=== PATIENT | female | born 2005 | race Caucasian/White ===

== ENCOUNTER 2024-10-11 14:37 | Observation (INO) ==
--- NOTE | 2024-10-11 14:53 | Emergency Department Note ---
Impression & Plan Pyelonephritis, UTI (urinary tract infection), Back pain ED Provider Note NAME: LAM LEIGH AGE: 19 SEX: F : 2005 ARRIVES VIA: Walk-In INFORMANT: Patient ED PROVIDER(S): Tonny Silva DO CHIEF COMPLAINT: right flank pain HPI: Patient is a 19-year-old female who presents ER for right flank pain. Pain started last Tuesday. She was having dysuria urgency or frequency. She gave a urine at [facility] and had a culture and was referred in. Currently on Macrobid and Pyridium. Denies any chest pain, shortness of breath, nausea, vomiting or diarrhea. No dysuria, urgency or frequency. No other exacerbating or remitting factors. ADDITIONAL HISTORY OBTAINED: Per HPI Chronic Medical/Social Conditions Affecting Care: Per HPI PAST MEDICAL HISTORY:See Below PAST SURGICAL HISTORY:See Below FAMILY HISTORY:See Below SOCIAL HISTORY:See Below HOME MEDICATIONS:See Below ALLERGIES:See Below VITALS:See Below PHYSICAL EXAMINATION: GENERAL: Sitting up in bed, alert, well appearing, well nourished, no distress, non-toxic EYE EXAM: normal conjunctiva. OROPHARYNX: no exudate, no erythema, lips, buccal mucosa, and tongue normal and mucous membranes are moist NECK: supple, no nuchal rigidity, no adenopathy, non-tender LUNGS: Clear to auscultation. Normal chest wall mechanics HEART: no murmurs, S1 normal and S2 normal ABDOMEN: abdomen soft, non-tender, normo-active bowel sounds, no masses, no rebound or guarding. BACK: Back is symmetrical on inspection and there is no deformity, no midline tenderness, no CVA tenderness. SKIN: no rashes and no bruising UPPER EXTREMITIES: upper extremities are grossly normal. LOWER EXTREMITIES: No pitting edema. NEURO EXAM: Normal sensorium, cranial nerves II-XII grossly intact, normal speech, no gross weakness of arms, no gross weakness of legs. MEDICAL DECISION MAKING: Patient is a 19-year-old female who presents ER for the below stated complaint. IV was established and blood work was obtained. Labs showed no significant leukocytosis or anemia. BMP along LFTs bilirubin lipase is unremarkable. hCG is negative. UA consistent with UTI. External records were reviewed from [facility] which shows extensive resistance. Based on this and the CT showing pyelonephritis patient was given IV antibiotics updated bedside and discussed the case with the hospitalist for further evaluation management treatment. CT of the head also showed sinusitis. Patient was given ertapenem which would cover this as well. Consults/Care Managements Discussions: Per [facility] Triage Nursing notes reviewed. Limited review of prior medical records performed Vital Signs: reviewed and remarkable for no significant abnormalities Differential diagnosis: Differential diagnoses includes but is not limited to gastritis, peptic ulcer disease, GERD, gallbladder disease, pancreatitis, small bowel obstruction, appendicitis, diverticulitis, hernia, urinary tract infection, torsion, /ectopic (if female), perforation, trauma, infectious. ER treatment provided: See below Diagnostics interpreted by me include EKG and cardiac monitoring as listed below: -Cardiac Monitoring: An order was placed for continuous cardiac monitoring. The monitor shows a rate of 82 with sinus rhythm. -ECG: none -Laboratory studies:Interpreted by me as stated above in MDM and shown below. Imaging studies: Xrays: As interpreted by me:none CTs show: CT abdomen pelvis per my preliminary interpretation showed no obvious bowel obstruction CT abdomen pelvis per radiologist described above Procedures:none Critical Care: None Past Med/Surg History Problem List (Updated 10/11/24 @ 19:39 by Tonny Silva DO) Back pain (Acute) Pyelonephritis (Acute) Headache UTI (urinary tract infection) (Acute) Nausea (Acute) Nasal congestion (Acute) Cough (Acute) Fever (Acute) Influenza A (Acute) Medical History No pertinent past medical history Social History Smoking Status: Never smoker Preferred Language: Korean Feels Safe at Home: Yes Allergies Allergies Allergy/AdvReac Type Severity Reaction Status Date / Time minocycline Allergy Unknown Verified 10/11/24 16:26 Home Meds Home Medications Medication Instructions Recorded Confirmed nitrofurantoin 100 mg PO BID 10/11/24 10/11/24 monohydrate/macrocrystals 100 mg capsule norethindrone 1 mg-ethinyl 1 tab PO HS 10/11/24 10/11/24 estradiol 20 mcg (21)-iron 75 mg (7) tablet (Aurovela Fe 1-20 (28)) phenazopyridine 200 mg tablet 200 mg PO UD 10/11/24 10/11/24 sertraline 100 mg tablet 100 mg PO HS 10/11/24 10/11/24 spironolactone 50 mg tablet 50 mg PO BID 10/11/24 10/11/24 Previous Rx's Medication Instructions Recorded ondansetron 4 mg disintegrating 4 mg PO Q6H PRN nausea and 09/27/24 tablet vomiting #7 tabs Results & Data (ED) Vital Signs Vital Signs - 24 hr 10/11/24 14:38 10/11/24 16:38 10/11/24 16:38 Temperature 36.4 C L Temperature Source Temporal Artery Scan Pulse Rate 85 79 Pulse Rate [Left Finger] 79 Pulse Rhythm Regular Respiratory Rate 18 19 19 Respiratory Effort / Characteristics Non-Labored Spontaneous Respiratory Depth Normal Respiratory Pattern Regular Blood Pressure 121/81 Blood Pressure [Left Arm] 126/80 Blood Pressure Mean 94 Blood Pressure Mean [Left Arm] 95 Blood Pressure Position [Left Arm] Sitting Pulse Oximetry 96 96 96 Oxygen Delivery Method Room Air Room Air Sepsis Recent Fever Within 48 Hours No Sepsis New/Unexplained Change in Mental Status N/A Sepsis Action Taken by Nursing No Action Required Laboratory Data 10/11/24 15:00 10/11/24 15:00 Lab Results 10/11/24 10/11/24 Range/Units 15:00 15:09 WBC 7.20 (4.8-10.8) K/ul RBC 4.79 (4.20-5.40) M/uL Hgb 13.3 (12.0-16.0) g/dl Hct 39.7 (37.0-47.0) % MCV 82.9 (80.0-100.0) fL MCH 27.8 (25.0-34.0) pg MCHC 33.5 (32.0-36.0) g/dL RDW Std Deviation 39.8 (36.4-46.3) fL RDW Coeff of Mee 13.2 (11.5-14.5) % Plt Count 308 (130-400) K/uL MPV 9.0 L (9.4-12.4) fL Immature Gran % (Auto) 0.4 % Neut % (Auto) 67.1 % Lymph % (Auto) 23.3 % Burnet % (Auto) 8.8 % Eos % (Auto) 0.1 % Baso % (Auto) 0.3 % Neut # (Auto) 4.83 (1.40-6.50) K/uL Lymph # (Auto) 1.68 (1.20-3.40) K/uL Burnet # (Auto) 0.63 H (0.11-0.59) K/uL Eos # (Auto) 0.01 (0.00-0.50) K/uL Baso # (Auto) 0.02 (0.00-0.20) K/uL Immature Gran # (Auto) 0.03 (0.01-0.20) K/uL Sodium 137 (136-145) mmol/L Potassium 4.4 (3.5-5.1) mmol/L Chloride 103 (98-107) mmol/L Carbon Dioxide 26 (21-32) mmol/L Anion Gap 8 (3-11) BUN 15 (6-23) mg/dl Creatinine 0.90 (0.6-1.2) mg/dl Est Cr Clr Drug Dosing 79.5 ml/min eGFR 93.28 BUN/Creatinine Ratio 16.7 (10-20) Glucose 95 (70-99(Fasting)) mg/dl Calcium 9.1 (8.6-10.3) mg/dl Total Bilirubin 0.5 (0.2-1.0) mg/dl AST 19 (13-39) U/L ALT 14 (7-52) U/L Alkaline Phosphatase 73 (34-104) U/L Total Protein 7.5 (6.0-8.3) gm/dl Albumin 4.4 (3.4-5.0) gm/dl Globulin 3.1 (2.5-4.0) gm/dl Albumin/Globulin Ratio 1.4 (0.9-2) Lipase 23 (11-82) U/L HCG, Qual Negative (Negative) Urine Color Dark Yellow Urine Appearance Clear (Clear) Urine pH 7.0 (4.5-7.5) Ur Specific [place]land 1.008 (1.000-1.030) Urine Protein Negative (Negative) Urine Glucose (UA) Negative (Negative) Urine Ketones Negative (Negative) Urine Blood Negative (Negative) Urine Nitrite Positive A (Negative) Urine Bilirubin Negative (Negative) Urine Urobilinogen Negative (Negative) Ur Leukocyte Esterase 1+ H (Negative) Urine WBC (Auto) 0-5 (0-5) /hpf Urine RBC (Auto) 0-2 (0-2) /hpf U Hyaline Cast (Auto) 0-2 (0-2) /lpf U Epithel Cells (Auto) 6-10 H (0-2) /hpf Urine Bacteria (Auto) 2+ H (None Seen) Administered Medications Discontinued Medications Acetaminophen (Acetaminophen 500 Mg Tab) 1,000 mg PO NOW STA Stop: 10/11/24 18:47 Last Admin: 10/11/24 19:04 Dose: 1,000 mg Documented By: DYLON Sodium Chloride (Nss) 1,000 mls @ 999 mls/hr IV .Q1H1M ONE Stop: 10/11/24 15:50 Last Infusion: 10/11/24 17:49 Dose: Infused Documented By: Admin: 10/11/24 15:04 Dose: 999 mls/hr Documented By: CHEYANNE Ertapenem (Invanz 1000mg) 1,000 mg in 10 mls @ 2 mls/min IV NOW STA Stop: 10/11/24 16:15 Last Admin: 10/11/24 16:59 Dose: 2 mls/min Documented By: CHEYANNE Ioversol (Optiray 320 100ml) 93 ml IV ONCE ONE Stop: 10/11/24 15:53 Last Admin: 10/11/24 15:52 Dose: 93 ml Documented By: WILD Ketorolac Tromethamine (Ketorolac Tromethamine 15 Mg/Ml Vial) 10 mg IV NOW ONE Stop: 10/11/24 14:51 Last Admin: 10/11/24 15:02 Dose: 10 mg Documented By: CHEYANNE Ondansetron HCl (Ondansetron Inj 2 Mg/Ml 2 Ml Vial) 4 mg IV NOW STA Stop: 10/11/24 17:05 Last Admin: 10/11/24 17:06 Dose: 4 mg Documented By: CHEYANNE Ondansetron HCl (Ondansetron Inj 2 Mg/Ml 2 Ml Vial) Confirm Administered Dose 4 mg .ROUTE .STK-MED ONE Stop: 10/11/24 17:06 Last Admin: 10/11/24 17:09 Dose: Not Given Documented By: CHEYANNE Imaging Data Radiologist's Impression: Abdomen/Pelvis CT 10/11/24 14:[address] WITH IV CONTRAST CT DOSE: 1092.35 mGy.cm HISTORY: Acute right-sided flank pain r flank pain TECHNIQUE: Multiaxial CT images of the abdomen and pelvis were performed following the IV administration of 93 cc of Optiray, A dose lowering technique was utilized adhering to the principles of ALARA. COMPARISON STUDY: None. FINDINGS: Subtle patchy subsegmental groundglass densities in the basal right lower lobe.. The liver, spleen, gallbladder, pancreas, and adrenal glands are within normal limits. Mild cortical scarring of the superior pole right kidney. Mild right-sided pelvocaliectasis with urothelial thickening. No obstructing calculus. Nonspecific mild urinary bladder wall thickening. Unremarkable uterus. No bowel wall thickening or obstruction. Normal appendix. Unremarkable osseous structures. IMPRESSION: 1. No bowel obstruction or bowel wall thickening. Normal appendix. 2. Nonspecific urinary bladder wall thickening. Correlate with urinalysis. 3. Mild right-sided pelvocaliectasis with urothelial thickening may represent an ascending infection. 4. Subtle groundglass opacities within the right lower lobe, likely infectious or inflammatory. ACT 112: Negative or not required by law. The above report was generated using voice recognition software. It may contain grammatical, syntax or spelling errors. Electronically signed by: Zeke Garcia M.D. 10/11/2024 4:[address] 10/11/24 14:50 CT head/brain wo con CLINICAL HISTORY: 19 years-old Female with bbo. Acute headache TECHNIQUE: Multiple axial CT images of the head were obtained without contrast. A dose lowering technique was utilized adhering to the principles of ALARA. COMPARISON: None. FINDINGS: No acute intracranial hemorrhage, midline shift, intracranial mass, hydrocephalus, territorial ischemia or abnormal extra-axial collection. The calvarium is intact. Moderate to severe mucosal thickening of the left maxillary sinus with aerosolized secretions and air-fluid level. Moderate mucosal thickening of the left ethmoid air cells. Mastoid air cells are clear. IMPRESSION: 1. No acute intracranial abnormality. 2. Moderate left-sided maxillary and ethmoid sinus disease with suggestion of acute component. ACT 112: Negative or not required by law. The above report was generated using voice recognition software. It may contain grammatical, syntax or spelling errors. Electronically signed by: Zeke Garcia M.D. 10/11/2024 4:00 PM Discharge Plan Visit Data Chief Complaint: Flank Pain Stated Complaint: UTI, RT FLANK PAIN, KIDNEY INFECTION ED Provider: Tonny Silva Discharge Problem: Pyelonephritis, UTI (urinary tract infection), Back pain Discharge Instructions Interventions: ED Discharge Assessment Last Done: 10/11/24 19:27 Discharge Problem: UTI (urinary tract infection) Qualifiers: Urinary tract infection type: acute pyelonephritis Qualified Code(s): N10 - Acute pyelonephritis Back pain Qualifiers: Back pain location: low back pain Chronicity: acute Back pain laterality: u nspecified Sciatica presence: unspecified whether sciatica present Qualified Code(s): M54.50 - Low back pain, unspecified
[2024-10-11] MEDS: KETOROLAC TROMETHAMINE 15 MG/ML VIAL IV ONE (15:02)
[2024-10-11] MEDS: SODIUM CHLORIDE 0.9% 1,000 ML IV ONE (15:04)
[2024-10-11 15:30] LABS: Basophils # (auto) 0.02 K/uL (0.00-0.20); Basophils % (auto) 0.3 %; Eosinophils # (auto) 0.01 K/uL (0.00-0.50); Eosinophils % (auto) 0.1 %; Hematocrit (blood only) 39.7 % (37.0-47.0); Hemoglobin 13.3 g/dl (12.0-16.0); Immature Granulocytes # (auto) 0.03 K/uL (0.01-0.20); Immature Granulocytes % (auto) 0.4 %; Lymphocytes # (auto) 1.68 K/uL (1.20-3.40); Lymphocytes % (auto) 23.3 %; Mean Corpuscular Hemoglobin 27.8 pg (25.0-34.0); Mean Corpuscular Hgb Conc 33.5 g/dL (32.0-36.0); Mean Corpuscular Volume 82.9 fL (80.0-100.0); Monocytes # (auto) 0.63 K/uL (0.11-0.59); Monocytes % (auto) 8.8 %; Neutrophils # (auto) 4.83 K/uL (1.40-6.50); Neutrophils % (auto) 67.1 %; Platelet Count 308 K/uL (130-400); RDW Coefficient of Variation 13.2 % (11.5-14.5); RDW Standard Deviation 39.8 fL (36.4-46.3); Red Blood Count 4.79 M/uL (4.20-5.40)
[2024-10-11 15:36] LABS: Pregnancy Test, Serum Negative (Negative)
[2024-10-11 15:45] LABS: Albumin Globulin Ratio 1.4 (0.9-2); Albumin Level 4.4 gm/dl (3.4-5.0); BUN Creatinine Ratio 16.7 (10-20); Bilirubin,Total 0.5 mg/dl (0.2-1.0); Calcium 9.1 mg/dl (8.6-10.3); Creatinine Clr Calc Pharmacy 79.5 ml/min; Globulin 3.1 gm/dl (2.5-4.0); Potassium 4.4 mmol/L (3.5-5.1); Total Protein 7.5 gm/dl (6.0-8.3)
[2024-10-11 15:48] LABS: Appearance Urine Clear (Clear); Bacteria Urine Automated 2+ (None Seen); Bilirubin Urine Negative (Negative); Blood Urine Negative (Negative); Cast Urine Automated 0-2 /lpf (0-2); Color Urine Dark Yellow; Glucose Urine UA Negative (Negative); Ketones Urine Negative (Negative); Leukocyte Esterase Urine 1+ (Negative); Nitrite Urine Positive (Negative); Protein Urine Negative (Negative); RBC Urine Automated 0-2 /hpf (0-2); Specific Gravity Urine 1.008 (1.000-1.030); Urobilinogen Urine Negative (Negative); WBC Urine Automated 0-5 /hpf (0-5)
[2024-10-11] MEDS: OPTIRAY 320 100ml IV ONE (15:52)
--- NOTE | 2024-10-11 16:01 | CT Scan Report ---
CT head/brain wo con CLINICAL HISTORY: 19 years-old Female with bob. Acute headache TECHNIQUE: Multiple axial CT images of the head were obtained without contrast. A dose lowering tech nique was utilized adhering to the principles of ALARA. COMPARISON: None. FINDINGS: No acute intracranial hemorrhage, midline shift, intracranial mass, hydrocephalus, territorial ischem ia or abnormal extra-axial collection. The calvarium is intact. Moderate to severe mucosal thickening of the left maxillary sinus with aero solized secretions and air-fluid level. Moderate mucosal thickening of the left ethmoid air cells. Ma stoid air cells are clear. IMPRESSION: 1. No acute intracranial abnormality. 2. Moderate left-sided maxillary and ethmoid sinus disease with suggestion of acute component. ACT 112: Negative or not required by law. The above report was generated using voice recognition software. It may contain grammatical, syntax o r spelling errors. Electronically signed by: Zeke Garcia M.D. 10/11/2024 4:00 PM
--- NOTE | 2024-10-11 16:08 | CT Scan Report ---
ABDOMEN AND PELVIS CT WITH IV CONTRAST CT DOSE: 1092.35 mGy.cm HISTORY: Acute right-sided flank pain r flank pain TECHNIQUE: Multiaxial CT images of the abdomen and pelvis were performed following the IV administrat ion of 93 cc of Optiray, A dose lowering technique was utilized adhering to the principles of ALARA. COMPARISON STUDY: None. FINDINGS: Subtle patchy subsegmental groundglass densities in the basal right lower lobe.. The liver, spleen, gallbladder, pancreas, and adrenal glands are within normal limits. Mild cortical scarring o f the superior pole right kidney. Mild right-sided pelvocaliectasis with urothelial thickening. No ob structing calculus. Nonspecific mild urinary bladder wall thickening. Unremarkable uterus. No bowel wall thickening or obstruction. Normal appendix. Unremarkable osseous structures. IMPRESSION: 1. No bowel obstruction or bowel wall thickening. Normal appendix. 2. Nonspecific urinary bladder wall thickening. Correlate with urinalysis. 3. Mild right-sided pelvocaliectasis with urothelial thickening may represent an ascending infection. 4. Subtle groundglass opacities within the right lower lobe, likely infectious or inflammatory. ACT 112: Negative or not required by law. The above report was generated using voice recognition software. It may contain grammatical, syntax o r spelling errors. Electronically signed by: Zeke Garcia M.D. 10/11/2024 4:05 PM
--- NOTE | 2024-10-11 16:28 | History & Physical Report ---
Date of Service October 11, 2024 Assessment & Plan (1) UTI (urinary tract infection): (2) Headache: Plan Anabella is a 19F with PMHx of urosepsis, hx of UPJ obstruction s/p Pyeloplasty (10/2023 with [facility]) who presents to the ED with flank pain that has not resolved despite taking Pyridium and Macrobid. #Flank Pain/ UTI Hx of UPJ obstruction s/p Pyeloplasty 2023. CT with right sided pelvocaliectasis and urothelial thickening, concerns for ascending infection. UC from [facility] with resistance to PO Continue Ertapenem until UC results Received 1L NSS. Encourage PO fluids Pain control: Tylenol, Toradol, Pyridium prn AM CBC and BMP #Headache CT head: no acute intracranial abnormality. Moderate left-sided maxillary sinus disease Pt is recovering from flu/PNA - if bacterial would be covered by ertapenem above, but not complaining of sinus issues. Suspect dehydration component. acne - continue spironolactone, OCP (instructed to bring in from home) mental health - continue zoloft Dispo: obs to med/tele DVT proh: low risk, encourage ambulation CODE STATUS: Full History of Present Illness Chief Complaint: Flank pain Primary Care Provider: [facility] Anabella is a 19F with PMHx of urosepsis, hx of UPJ obstruction s/p Pyeloplasty ([facility]) who presents to the ED with flank pain that has not resolved despite taking Pyridium and Macrobid. UTI symptoms started about one week ago. Had UC with [facility] that showed resistance to everything listed, but Macrobid, and was instructed to come to the ED with continued flank pain. Has associated nausea, vomiting and chills. Has not measured for a fever. Was able to keep some food down with zofran this morning. Also reporting a headache, denies vision changes or that the room is spinning. Does report some dizziness. About two weeks ago had flu/pneumonia. ED course: NSS 1L toradol 10mg IV x11 ertapenem 1g Allergies Allergy/AdvReac Type Severity Reaction Status Date / Time minocycline Allergy Unknown Verified 10/11/24 16:26 Home Medications Medication Instructions Recorded Confirmed Type ondansetron 4 mg disintegrating 4 mg PO Q6H PRN nausea and 09/27/24 10/11/24 Rx tablet vomiting #7 tabs norethindrone 1 mg-ethinyl 1 tab PO HS 10/11/24 10/11/24 History estradiol 20 mcg (21)-iron 75 mg (7) tablet (Aurovela Fe 1-20 (28)) phenazopyridine 200 mg tablet 200 mg PO UD 10/11/24 10/11/24 History sertraline 100 mg tablet 100 mg PO HS 10/11/24 10/11/24 History spironolactone 50 mg tablet 100 mg PO BID 10/11/24 10/11/24 History ciprofloxacin HCl 500 mg tablet 500 mg PO BID 5 days #10 tabs 10/12/24 Rx Past Med/Surg History Problem List Back pain (Acute) Pyelonephritis (Acute) Headache UTI (urinary tract infection) (Acute) Medical History No pertinent past medical history Social History Smoking Status: Never smoker Hx Alcohol Use: Yes Hx Substance Use: No Preferred Language: Guinean Communication Ability: Effective Nut [employer] B[employer] 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 + R CVA tenderness Extremities: Moves all extremities, no edema Neuro: A&O x3, Results & Data Results & Data Vital Signs (Past 12 Hours) Vital Signs Temp Pulse Resp BP Pulse Ox 10/11/24 14:38 97.5 F L 85 18 121/81 96 Laboratory Results cbc chemsitry reviewed outside urine culture reviewed Diagnostic Findings CTA/P reviewed CT head reviewed Supervising Physician Co-Signing Physician Notes I personally saw and examined the patient. I independently reviewed the labs, imaging, problem list, medication list, past medical history and family history. I verified all clifford points and agree with Christina De Souza PA-C with the following exceptions and/or additions: 19 year old female presents to the ER with right flank pain. Hx pyeloplasty. O/E HS RRR, no murmurs, Chest CTAB, Abdo SNT, Right CVA tenderness A/P E. coli pyelonephritis - resistant ampicillin, cefazolin, ceftriaxone, cefuroxime, tetracycline, Bactrim. Indeterminate resistance to levofloxacin. Sensitive ciprofloxacin and nitrofurantoin. Given not checked against cefepime/zosyn will treat as ESBL pending repeat culture with ertapenem. PG Care Time/CCT Total # of Minutes Spent Total Time Spent with Patient: Total time spent is greater than 50% in coordination of care (as documented) at patient's floor/unit and/or counseling patient: Coding Level of Care Code 49279 INT INP/OBS CARE 2/55MIN Diagnoses UTI (urinary tract infection) N39.0 Headache R51.9
[2024-10-11] MEDS: ERTAPENEM 1000MG 1,000 MG/10 ML SYR IV STA (16:59)
[2024-10-11] MEDS: ONDANSETRON INJ 2 MG/ML 2 ML VIAL IV STA (17:06)
[2024-10-11] MEDS: ONDANSETRON INJ 2 MG/ML 2 ML VIAL ONE (17:09)
[2024-10-11] MEDS: ACETAMINOPHEN 500 MG TAB PO STA (19:04)
[2024-10-11] MEDS ORDERED: POLYETHYLENE (MIRALAX) 17 GM PACK PO PRN (19:26)
[2024-10-11] MEDS ORDERED: PHENAZOPYRIDINE HCL 200 MG TAB PO PRN (19:26)
[2024-10-11] MEDS ORDERED: ACETAMINOPHEN 500 MG TAB PO PRN (19:26)
[2024-10-11] MEDS ORDERED: ONDANSETRON INJ 2 MG/ML 2 ML VIAL IV PRN (19:26)
[2024-10-11] MEDS ORDERED: MELATONIN 3 MG TAB PO PRN (19:26)
[2024-10-11] MEDS: SERTRALINE HCL 100 MG TABLET PO SCH (20:50)
[2024-10-11] MEDS: SPIRONOLACTONE 100 MG TAB PO SCH (20:50)
[2024-10-11] MEDS ORDERED: SPIRONOLACTONE 25 MG TAB PO SCH (21:00)
[2024-10-11] MEDS: [UNRECOGNIZED DRUG - OTHER] SCH (21:34)
[2024-10-11 22:21] VITALS: PULSE 71; TEMP 98.1; O2SAT 97
[2024-10-12] MEDS: KETOROLAC TROMETHAMINE 15 MG/ML VIAL IV PRN (00:06)
[2024-10-12 07:04] VITALS: BP 112/67; RESP 18
--- NOTE | 2024-10-12 08:17 | Hospitalist Progress Note ---
Date of Service October 12, 2024 Assessment & Plan (1) UTI (urinary tract infection): (2) Headache: Plan Anabella is a 19F with PMHx of urosepsis, hx of UPJ obstruction s/p Pyeloplasty (10/2023 with [facility] [place]) who presents to the ED with flank pain that has not resolved despite taking Pyridium and Macrobid. #Flank Pain/ UTI Hx of UPJ obstruction s/p Pyeloplasty [address] [place] [address] with right sided pelvocaliectasis and urothelial thickening, concerns for ascending infection. UC from [email or web address] with resistance to PO Continue Ertapenem until UC results Received 1L NSS. Encourage PO fluids Pain control: Tylenol, Toradol, Pyridium prn AM CBC and BMP Urine cx -- e. coi resistant ampicillin, cefazolin, ceftriaxone, cefuroxime, tetracycline Bactrim. Sensitive ciprofloxacin, indeterminate levo Urology consult pending, per nursing note patient contacted her urologist in [place] and req transfer to [place]. Can plan to f/u with urologist after eval Spironolactone placed on hold, on for acne but reports dehydration on admission and is diuretic, would not want to make worse #Headache CT head: no acute intracranial abnormality. Moderate left-sided maxillary sinus disease Pt is recovering from flu/PNA - if bacterial would be covered by ertapenem above, but not complaining of sinus issues. Suspect dehydration component. acne - continue spironolactone, OCP (instructed to bring in from home) mental health - continue zoloft Dispo: obs to med/tele DVT proh: low risk, encourage ambulation CODE STATUS: Full Admission and Anticipated Discharge Date Admission Date: October 11, 2024 Subjective Evaluated this morning, Results & Data Results & Data Vital Signs (Past 12 Hours) Vital Signs Temp Pulse Resp BP Pulse Ox O2 Del Method 10/12/24 07:04 36.7 C 71 18 112/67 97 Room Air PG Care Time/CCT Total # of Minutes Spent Total Time Spent with Patient: Total time spent is greater than 50% in coordination of care (as documented) at patient's floor/unit and/or counseling patient: Coding Diagnoses UTI (urinary tract infection) N10 Urinary tract infection type: acute pyelonephritis Headache R51.9 (1) UTI (urinary tract infection) Urinary tract infection type: acute pyelonephritis Qualified Code(s): N10 - Acute pyelonephritis
[2024-10-12 08:42] LABS: Hematocrit (blood only) 35.1 % (37.0-47.0); Hemoglobin 11.7 g/dl (12.0-16.0); Mean Corpuscular Hemoglobin 28.2 pg (25.0-34.0); Mean Corpuscular Hgb Conc 33.3 g/dL (32.0-36.0); Mean Corpuscular Volume 84.6 fL (80.0-100.0); Mean Platelet Volume 9.3 fL (9.4-12.4); Platelet Count 223 K/uL (130-400); RDW Coefficient of Variation 13.2 % (11.5-14.5); RDW Standard Deviation 40.9 fL (36.4-46.3); Red Blood Count 4.15 M/uL (4.20-5.40); White Blood Count 5.16 K/ul (4.8-10.8)
[2024-10-12 09:33] LABS: BUN Creatinine Ratio 18.1 (10-20); Calcium 8.7 mg/dl (8.6-10.3); Creatinine Clr Calc Pharmacy 87.7 ml/min; Magnesium 2.1 mg/dl (1.7-2.4); Potassium 4.3 mmol/L (3.5-5.1)
--- NOTE | 2024-10-12 09:55 | Urology Consultation ---
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 Patient remains afebrile and hemodynamically stable Labs reviewedcreatinine 0.83, no leukocytosis Urinalysis on arrival suspicious for infection Urine culture pending Outpatient urine culture reviewedE. coli with multidrug resistance pattern, sensitive to Ciprofloxacin CT imaging consistent with ascending infection, no focal obstruction No surgical intervention warranted Recommend continue with antibiotics and supportive care for complicated UTI She is clinically stable and subjectively feeling much better Reasonable to do outpatient management with Ciprofloxacin for complicated UTI will sign off, please contact our service with any additional questions or concerns History of Present Illness Reason for Consultation: complicated UTI, history of pyeloplasty Requesting Physician: Dr. 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 She was recently started on Macrobid for UTI by [facility]. She developed flank pain despite antibiotics and she was referred to the ED due to urine culture with multidrug resistance. On arrival to ED, she was afebrile and hemodynamically stable. Lab work showed WBC 7.2, hemoglobin 13.3, creatinine 0.90. hCG negative. Urinalysis was positive for nitrates, 1+ LE and 2+ bacteria. Urine culture obtained and pending. Workup included CT abdomen pelvis with IV contrast which showed nonspecific urinary bladder wall thickening, mild right-sided pelvocaliectasis with u rothelial thickening, no obstructing calculi. ED course: Acetaminophen, IV fluids, ertapenem, ketorolac and ondansetron. She was admitted to the hospital medicine service for complicated UTI. Urology is consulted for complicated UTI, history of pyeloplasty. Chart review: Urine culture on admission is pending Outpatient urine culture w/ E. coli, resistant ampicillin, cefazolin, ceftriaxone, cefuroxime, tetracycline, and Bactrim. Sensitive to ciprofloxacin. Patient is currently on Ertapenem Labs today reviewedcreatinine 0.83, WBC 5.16, hemoglobin 11.7 Patient seen and examined at bedside this morning. She is awake and sitting up in bed. She reports feeling better since arrival, no flank pain at present. No fever or chills. No nausea or vomiting. Appetite good. She is voiding spo ntaneously, no dysuria or hematuria. Allergies Allergy/AdvReac Type Severity Reaction Status Date / Time minocycline Allergy Unknown Verified 10/11/24 16:26 Home Medications Medication Instructions Recorded Confirmed Type ondansetron 4 mg disintegrating 4 mg PO Q6H PRN nausea and 09/27/24 10/11/24 Rx tablet vomiting #7 tabs nitrofurantoin 100 mg PO BID 10/11/24 10/11/24 History monohydrate/macrocrystals 100 mg capsule norethindrone 1 mg-ethinyl 1 tab PO HS 10/11/24 10/11/24 History estradiol 20 mcg (21)-iron 75 mg (7) tablet (Aurovela Fe 1-20 (28)) phenazopyridine 200 mg tablet 200 mg PO UD 10/11/24 10/11/24 History sertraline 100 mg tablet 100 mg PO HS 10/11/24 10/11/24 History spironolactone 50 mg tablet 100 mg PO BID 10/11/24 10/11/24 History Patient History Medical History No pertinent past medical history Social History Smoking Status: Never smoker Hx Alcohol Use: Yes Hx Substance Use: No Preferred Language: Djiboutian Communication Ability: Effective Winder Fixer Required: No Beliefs That Will Affect Care: None Current Living Situation: Other Current Living Situation Comment: roommates at [employer] Feels Safe at Home: Yes Safety Concerns: Feels Safe At This Time Assistive Devices: Glasses Review of Systems Review of Systems: All systems reviewed & are unremarkable except as noted in HPI & below Physical Exam Constitutional: well developed and well nourished; no acute distress Respiratory: normal respiratory effort; no respiratory distress and no labored breathing Gastrointestinal (Abdomen): Inspection/Auscultation: abdomen normal to i nspection Musculoskeletal: Head/Neck/Chest: normocephalic Neurologic: moves all extremities and awake Psychiatric: Orientation: alert and oriented x 3 Genitourinary: no CVA tenderness Results & Data Vital Signs (Past 12 Hours) Vital Signs Temp Pulse Resp BP Pulse Ox O2 Del Method 10/12/24 07:04 36.7 C 71 18 112/67 97 Room Air PG Care Time/CCT Total # of Minutes Spent Total Time Spent with Patient: Total time spent is greater than 50% in coordination of care (as documented) at patient's floor/unit and/or counseling patient: Coding Level of Care Code 08564 IN/OBS CONSULT LVL 3,45M Diagnoses UTI (urinary tract infection) N10 Urinary tract infection type: acute pyelonephritis (1) UTI (urinary tract infection) Urinary tract infection type: acute pyelonephritis Qualified Code(s): N10 - Acute pyelonephritis
--- NOTE | 2024-10-12 09:57 | Discharge Summary ---
Discharge Summary Date of Service October 12, 2024 Principal Dx & Hospital Course #1 = Principal Diagnosis (1) UTI (urinary tract infection): (2) Headache: Plan Anabella is a 19F with PMHx of urosepsis, hx of UPJ obstruction s/p Pyeloplasty (10/2023 with [facility]) who presented to the ED with flank pain not resolved with pyridium and macrobid as rx by S. Patient placed on Ertapenem IV, UA + nitrite/1+ leuk esterase, 2+ bacteria (6-10 epis) CTAP with nonspecific urinary bladder wall thickening with mild right sided pelvocaliectasis with urothelial thickening may represent an ascending infection. Also noted subtle ground glass opacities w/i RLL, infectious vs inflammatory (just getting over flu/pneumonia) IVF provided, pain control/antiemetics and urology consulted and urine cx from [facility] reviewed w/ ecoli, resistant to ampicillin, cefazoli, ceftriaxone, cefuroxime tetracycline and bactrim. Sensitive to Cipro, intermediate to levaquin. Cannot r/o ESBL however per discussion w/ urology and patient much improved/wanting to go home have dc on Cipro 500mg BID to complete course. Renal function stable, tolerating po, no leukocytosis or fever and resolution in pain. Repeat urine cx pending at time of discharge and discussed s/sx to return if issues. #Headache CT head negative, notes moderate left sinus disease but no sinus issues reported and recently recovering from flu/pneumoina. Notes For Next Care Provider Cipro PO to complete course F/u repeat urine cx pending at dc if ESBL may require ongoing abx but was sensitive to Cipro and urology rec to dc on such Medication Changes From Visit Cipro 500mg PO BID DC macrobid Admission HPI Per Admitting Provider Anabella is a 19F with PMHx of urosepsis, hx of UPJ obstruction s/p Pyeloplasty (10/2023 with [facility]) who presents to the ED with flank pain that has not resolved despite taking Pyridium and Macrobid. UTI symptoms started about one week ago. Had UC with [facility] that showed resistance to everything listed, but Macrobid, and was instructed to come to the ED with continued flank pain. Has associated nausea, vomiting and chills. Has not measured for a fever. Was able to keep some food down with zofran this morning. Also reporting a headache, denies vision changes or that the room is spinning. Does report some dizziness. About two weeks ago had flu/pneumonia. ED course: NSS 1L toradol 10mg IV x11 ertapenem 1g Admission Exam Per Admitting Provider General: NAD, VS as above, sitting up in bed, appears well Resp: normal respiratory effort, lungs clear to auscultation CV: RRR, no murmur, Abd: normal bowel sounds, mild suprapubic tenderness. + R CVA tenderness Extremities: Moves al l extremities, no edema Neuro: A&O x3, Discharge Exam General: 19yo female, WN/WD sitting up in bed, looks well, inquiring about going home Head atraumatic, normocephalic, mmm, trachea midline Resp: even/unlabored, no overt wheezing/rales, on room air 97% CV: RRR, no signficiant m/r/g, pulses present GI: +BS, soft/NT ; no cva tenderness, voiding spontaneously MSK/Neuro/Psych: AOx3, nonfocal, not confused, answering questions appropriately Discharge Plan Discharge Items Patient Disposition: Home - Self-Care Reason For Visit: PYELO Discharge Diagnosis: UTI Goals: You have been hospitalized for an acute medical problem. During your stay at [facility], we have made an effort to correct the problem that brought you to the hospital while keeping you as comfortable as possible. Medications were used to bring your condition under control and your discharge instructions will include directions for any medications you should take after leaving the hospital. Please make sure you see your Primary Care Provider as part of your follow up plan. Activity: As commented below Non-emergency contact: Primary Care Provider and Urologist Call non-emergency contact if: you have any medication questions, your symptoms worsen, your pain is not controlled, your pain is worsening and your pain is unusual for you Follow-up/Referrals: [facility] [Primary Care Provider] - Diet: Regular Addtl Attending Provider Instructions: You have been hospitalized for flank pain and urinary tract infection that was not adequately treated with prior oral antibiotics. You were treated with IV antibiotics and urology was consulted and imaging was reviewed without acute abnormality and decision to discharge on CIPROFLOXACIN at discharge. This will be 500mg by mouth twice daily for another 5 days to complete the course. Please monitor for any tendon issues as discussed/avoid excessive exercising while on this. control is also not effective on antibiotics to note and please use extra precautions during this time. Please follow up with S at discharge to monitor your status. Please return to the ER with any worsening pain, fever/chills, inability to keep up with oral intake or for any other symptoms concerning for you. Take care! Pending Studies at Discharge: Yes (urine cx) Stand-Alone Forms: My [facility] [employer], Work/School Release, Smoking Cessation Medications and DC Order Prescriptions: New ciprofloxacin HCl 500 mg Tablet 500 mg PO BID 5 Days Qty: 10 0RF Continued ondansetron 4 mg tablet,disintegrating 4 mg PO Q6H PRN (Reason: nausea and vomiting) Qty: 7 0RF norethindrone-e.estradiol-iron [Aurovela Fe 1-20 (28)] 1 mg-20 mcg (21)/75 mg (7) tablet 1 tab PO HS phenazopyridine 200 mg tablet 200 mg PO UD spironolactone 50 mg tablet 100 mg PO BID sertraline 100 mg Tablet 100 mg PO HS Discontinued nitrofurantoin monohyd/m-cryst 100 mg capsule 100 mg PO BID Rx Instructions: TAKE FOR 5 DAYS 10/09/24 Discharge Orders: Discharge Order (Routine); Ordered 10/12/24 Ordered By: Ami Triplett Admission Data Admit Date/Time: 10/11/24 16:54 Attending Provider: Zafar Bruno Admit Provider: Preston Worley Primary Care Provider: [facility] Other Providers: Preston Worley; Joel Patton Hospital Stay Data Consultations 10/11/24 16:12 ED Decision to Admit Stat 10/11/24 21:27 Consult Urology Routine Diagnostic Imagining Performed 10/11/24 14:50 CT abd pelvis IV con only Stat CT head/brain wo con Stat Discharge Instructions Given to Patient (Per Discharging Provider) You have been hospitalized for flank pain and urinary tract infection that was not adequately treated with prior oral antibiotics. You were treated with IV antibiotics and urology was consulted and imaging was reviewed without acute abnormality and decision to discharge on CIPROFLOXACIN at discharge. This will be 500mg by mouth twice daily for another 5 days to complete the course. Please monitor for any tendon issues as discussed/avoid excessive exercising while on this. control is also not effective on antibiotics to note and please use extra precautions during this time. Please follow up with [facility] at discharge to monitor your status. Please return to the ER with any worsening pain, fever/chills, inability to keep up with oral intake or for any other symptoms concerning for you. Take care! Supervising Physician Co-Signing Physician Notes The patient was not seen by me. The chart was reviewed. Case discussed with VIRGINIA Matias. Agree with assessment and plan Total Time Total Time Spent Total Time Spent (In Minutes): 35 Coding Level of Care Code 81858 INP/OBS DISCH >30 MIN Diagnoses UTI (urinary tract infection) N10 Urinary tract infection type: acute pyelonephritis Headache R51.9
[2024-10-12] MEDS: CIPROFLOXACIN 500 MG TAB PO SCH (10:30)
[2024-10-12] MEDS ORDERED: ERTAPENEM 1000MG 1,000 MG/10 ML SYR IV SCH (17:00)
== END 2024-10-12 11:14 | disposition home or self-care (01) ==
LOC: ED 14:37 → EDINP 14:37 → SUATTDRO 16:54 → 3N 19:38